=== PATIENT | male | born 1990 | race Caucasian/White ===

== ENCOUNTER 2022-07-25 15:18 | Emergency (ER) | payer BC ==
[2022-07-25 15:25] VITALS: BP 127/72
[2022-07-25 16:00] LABS: BILIRUBIN,URINE NEGATIVE (NEGATIVE); GLUCOSE, URINE (UA) NEGATIVE (NEGATIVE); KETONES,URINE (UA) NEGATIVE (NEGATIVE); LEUKOCYTE ESTERASE, URINE NEGATIVE (NEGATIVE); NITRITE,URINE NEGATIVE (NEGATIVE); OCCULT BLOOD,URINE NEGATIVE (NEGATIVE); PROTEIN,URINE NEGATIVE (NEGATIVE); UROBILINOGEN,URINE 1 (NORMAL) E.U./dL (NORMAL)
[2022-07-25 16:03] LABS: CLARITY,URINE CLEAR (CLEAR)
--- NOTE | 2022-07-25 17:24 | ED Physician Documentation ---
History of Present Illness - Stated complaint Stated Complaint: PAIN WHEN URINATING - Chief complaint Chief Complaint: UTI - Additonal information Additional information: 32-year-old male presents emergency department for evaluation of dysuria that began 2 days ago. He states it hurts only when urinating. He does not have any pain in his bladder or pain after urinating. He has no difficulty initiating micturition. He denies engaging in any form of rectal sex or rectal play. He is in a sexually monogamous relationship with his of 10 years. He has no abdominal pain, vomiting. Is not urinating more frequently or with urgency. Review of Systems Eyes: reports: Reviewed and negative Nose: reports: Reviewed and negative Throat: reports: Reviewed and negative Cardiac: reports: Reviewed and negative Respiratory: reports: Reviewed and negative GI: reports: Reviewed and negative : reports: Dysuria. denies: Frequency, Hesitancy, Unable to Void, Incontinent, Hematuria, Discharge, Testicular pain, Testicular mass Skin: reports: Reviewed and negative Musculoskeletal: reports: Reviewed and negative PD PAST MEDICAL HISTORY - Present Medications Home Medications: Ambulatory Orders Medication Instructions Recorded Confirmed No Known Home Medications 07/25/22 07/25/22 - Allergies Allergies/Adverse Reactions: Allergies Allergy/AdvReac Type Severity Reaction Status Date / Time amoxicillin [From Augmentin] Allergy Hives Verified 07/25/22 15:25 clavulanic acid Allergy Hives Verified 07/25/22 15:25 [From Augmentin] PD ED PE NORMAL - General General: Alert and oriented X 3, No acute distress - Cardiac Cardiac: RRR, No murmur, No gallop - Abdomen Abdomen: Normal bowel sounds, Soft, Non tender (No flank CVA or suprapubic tenderness) - Male Male : Other (Unremarkable male exam. Uncircumcised. No discharge no tenderness positive cremasteric. 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 Eye Opening: Spontaneous Motor: Obeys Commands Verbal: Oriented GCS Score: 15 Results - Vitals Vitals: Vital Signs - 24 hr 07/25/22 15:20 Temperature 36.8 C Heart Rate 75 Respiratory 16 Rate Blood Pressure 127/72 O2 Saturation 97 Oxygen O2 Source Room air - Labs Labs: Laboratory Tests 07/25/22 15:22 Urine Color YELLOW Urine Clarity CLEAR Urine pH 7.0 Ur Specific [place] 1.015 Urine Protein NEGATIVE Urine Glucose (UA) NEGATIVE Urine Ketones NEGATIVE Urine Occult Blood NEGATIVE Urine Nitrite NEGATIVE Urine Bilirubin NEGATIVE Urine Urobilinogen 1 (NORMAL) Ur Leukocyte Esterase NEGATIVE Ur Microscopic Review NOT INDICATED Urine Culture Comments NOT INDICATED PD MEDICAL DECISION MAKING - ED course Complexity details: reviewed results, considered differential, d/w patient ED course: 32-year-old male presents emergency department for evaluation of 2 days of dysuria. No fevers abdominal pain urgency or frequency. He denies possibility of STI as he is in a sexual monogamous relationship with his . He denies change in urine stream. No rectal pain. Denies any rectal penetration or engaging in rectal sex. Here in the emergency department He has an entirely unremarkable exam. We did discuss different etiologies aside from urinary and infection that can cause dysuria such as renal ureter colic, prostatitis, bladder stones or even STD. I did offer patient more testing however at this time given the very mild nature of his symptoms he declines. He is here visiting the [place] for the holiday and reports that he will follow-up with his primary care provider on Tuesday if the symptoms do not resolve which I feel is a reasonable alternative at this time Departure - Departure Disposition: 01 Home, Self Care Clinical Impression: Dysuria Condition: Stable Record reviewed to determine appropriate education?: Yes Instructions: ED Dysuria Uncertain Cause Ch Comments: Romel was seen today in the emergency department for some pain when you urinate. Your urine is entirely unremarkable without markers of infection. We did discuss other options for identifying causes of dysuria here in the emergency department such as labs, imaging but at this time given the mild nature of your symptoms you have elected to monitor and follow-up with your primary care provider. If at any point you find that your symptoms are worsening, you develop fevers, have obvious blood in your urine, are unable to urinate or develop abdominal pain with vomiting then please return immediately to the ER for second evaluation.
== END 2022-07-25 17:31 | disposition home or self-care (01) ==
LOC: ED 15:18
DX: R30.0 Dysuria (principal)
CPT/HCPCS: 81001; 81003; 87086; 99282; 99283